=== PATIENT | female | born 1960 | race Caucasian/White ===

== ENCOUNTER 2018-01-11 12:21 | Emergency (ER) | payer BC, OTHER ==
[~2018-01-11 12:21] MED LIST: ACET-2043 PO; ACYC-50 PO; AMOX-362 PO; ASPI-715 PO; ASPI-757 PO; ASPI-879 PO; CANA300T PO; CETI10CA PO; CHOL200025 PO; CHOL200038 PO; CYAN1TAB68 PO; CYAN500T38 PO; DOCU-442 PO; DUL30 PO; FENO145T36 PO; FEXO1TAB PO; GABA-503 PO; GABA-547 PO; GABA-549 PO; GLUC-198 PO; GLY25 PO; GLY5 PO; GLYB2.5T67 PO; HYDR-2966 PO; HYDR-385 PO; HYDR-4228 PO; HYDR-4309 PO; IBU200 PO; IBUP600T22 PO; KET10 PO; LIDO700A29 TD; LISI5TAB25 PO; LOR10 PO; MECL25TA9 PO; MET500 PO; METH1ADH TP; MINE1TAB6 PO; MULT-1335 PO; MULT1CAP59 PO; NOR25 PO; ONDA4TAB PO; OXYC-865 PO; PIOG15TA2 PO; POLY17PO2 PO; POTA10CA40 PO; VENL37.514 FT; VENL37.594 PO; VITA1CAP46 PO; [UNRECOGNIZED DRUG - CODE] PO; [UNRECOGNIZED DRUG - CODE] PO; [UNRECOGNIZED DRUG - CODE] PO; [UNRECOGNIZED DRUG - CODE] PO; [UNRECOGNIZED DRUG - OTHER] OU
--- NOTE | 2018-01-11 12:33 | ER Report ---
History and Physical Time Seen By : 12:33 HPI/ROS Patient is a 57 y.o. female presenting to the ER for acute knee pain. She was at home and walking around a chair when she felt a pop and severe pain. She was unable to place weight on it at that point. She denies a change in sensation, pain without weight bearing, and decrease in ROM. She has a history of left knee contusion 3 years ago but no other injuries or surgeries on the joint. No history of OA. Allergies: Coded Allergies: haloperidol (Verified Allergy, Severe, 18 OF 21 REACTIONS, 09/06/17) Antihistamines - Alkylamine (Verified Allergy, Unknown, 09/06/17) ALL ANTIHISTAMINES Antihistamines - Ethanolamine (Verified Allergy, Unknown, 09/06/17) Antihistamines - Ethylenediamine (Verified Allergy, Unknown, 09/06/17) Antihistamines - Piperazine (Verified Allergy, Unknown, 09/06/17) Antihistamines - Piperidine (Verified Allergy, Unknown, 09/06/17) Uncoded Allergies: DECONGESTANTS (Allergy, Unknown, 07/19/16) Home Meds Active Scripts Oxycodone Hcl/Acetaminophen (OXYCODON-ACETAMINOPHEN 2.5-325) 1 Each Tablet, 1 EACH PO Q6-8H for PAIN, #10 TAB 0 Refills Prov:ELDON STORY MD 04/13/17 Polyethylene Glycol 3350 (GAVILAX) 17 Gm Powd.pack, 17 GM PO QDAY, #4 PACK 0 Refills Prov:ELDON STORY MD 04/13/17 Reported Medications Aspirin (ASPIRIN) 325 Mg Tablet, 1200 MG PO QID Y for PAIN, TAB 03/08/17 Gabapentin (GABAPENTIN) 300 Mg Capsule, 600 MG PO QID, CAPSULE 03/08/17 Acyclovir (ACYCLOVIR) 400 Mg Tablet, 800 MG PO QID, TAB 03/08/17 Canagliflozin (INVOKANA) 300 Mg Tablet, 300 MG PO DAILY 03/08/17 Fenofibrate Nanocrystallized (FENOFIBRATE) 145 Mg Tablet, 145 MG PO QDAY 07/21/16 Potassium Chloride (POTASSIUM CHLORIDE) 10 Meq Capsule.er, 10 MEQ PO QDAY TAKE WITH FOOD 06/05/15 Lisinopril (LISINOPRIL) 5 Mg Tablet, 10 MG PO QAM 11/05/14 Glyburide (DIABETA) 5 Mg Tablet, 10 MG PO BID 10/28/13 Multivitamins W-Minerals (Multiple Vitamin) 1 Tab Tablet, 1 TAB PO DAILY 01/25/13 Past Medical/Surgical History Left knee contusion in 2014 Reviewed Nurses Notes: Yes Hx Smoking: No Smoking Status: Never Smoker Exposure to Second Hand Smoke?: No Hx Substance Use Disorder: No Hx Alcohol Use: Yes Constitutional Vital Sign - Last 24 Hours 01/11/18 01/11/18 01/11/18 01/11/18 12:30 12:30 12:51 13:21 Temp 98.5 Pulse 86 77 74 Resp 20 B/P (MAP) 125/83 (97) 125/83 Pulse Ox 90 91 90 O2 Delivery Room Air 01/11/18 01/11/18 01/11/18 01/11/18 13:51 13:56 14:11 14:12 Pulse 75 72 75 B/P (MAP) 110/68 (82) Pulse Ox 89 91 91 Physical Exam General: Calm and under no acute distress Resp: Clear and equal bilaterally Cardiovascular: RRR, no murmurs, gallops, or rubs. Distal pulse equal bilaterally. MSK: Full passive and active ROM in left knee, neg. anterior and posterior drawer sign. Tenderness with knee verus motion. Strength and sensation 5/5. Psych: Appropriate mood and affect Neuro: A&O x 3 Medical Decision Making EKG/Imaging Imaging Study: KNEE 4 VIEW LEFT Indication: Pain Comparison study: June 05, 2015 Findings: AP lateral oblique and sunrise views of the left knee demonstrates mild lateral subluxation of the patellofemoral joint. There is no significant joint effusion. There is no evidence of acute fracture or dislocation. There is no evidence of lytic or blastic bony lesions. There is no significant degenerative change noted. IMPRESSION: Mild lateral subluxation of the patellofemoral joint, otherwise unremarkable. Report Dictated By: Jerardo Medellin at 01/11/2018 1:41 PM Report E-Signed By: Jerardo Medellin at 01/11/2018 1:43 PM ED Course/Re-evaluation ED Course Patient presented to ER and was admitted with left knee pain. She was examined and provided with Toradol 60 mg IM. Left knee xray ordered and showed lateral patellar subluxation. She was placed in a patellar stabilization brace and provided with crutches. She was discharged with assistance of her and recommended f/u with PCP for PT referral. Decision to Disposition Date: Jan 11, 2018 Decision to Disposition Time: 13:45 Depart Departure Latest Vital Signs Vital Signs Date Time Temp Pulse Resp B/P (MAP) Pulse Ox O2 Delivery O2 Flow Rate FiO2 01/11/18 14:12 110/68 (82) 01/11/18 14:11 75 91 01/11/18 12:30 98.5 20 Room Air Impression: Primary Impression: Sprain of left knee Condition: Improved Disposition: HOME OR SELF-CARE Patient Instructions: Knee Sprain (ED) Additional Instructions: Your have sprained your left knee. We placed you in a patella stabilizing brace and provided with crutches for ambulation. Weight baring as tolerated. Ibuprofen 800 mg every 6-8 hours as needed for pain. Ice application to knee 20 minutes 3-4 times daily. Follow-up with your primary care provider for possible physical therapy referral. Problem Qualifiers Primary Impression: Sprain of left knee Encounter type: initial encounter Involved ligament of knee: unspecified ligament Qualified Codes: S83.92XA - Sprain of unspecified site of left knee, initial encounter JESICA RILEY Jan 11, 2018 12:33
[2018-01-11] MEDS ORDERED: KETOROLAC 60 MG/2 ML VIAL IM ONE (12:50)
--- NOTE | 2018-01-11 13:47 | RADIOLOGY IMAGING REPORT ---
FACILITY: [facility] PATIENT NAME: Gayle Abreu : 1960 MR: [id number] V: [id number] EXAM DATE: ORDERING PHYSICIAN: JESICA RILEY TECHNOLOGIST: Location: [facility] - [place] Patient: Gayle Abreu : 1960 Visit/Account:[id number] Date of Sevice: 01/11/2018 Study: KNEE 4 VIEW LEFT Indication: Pain Comparison study: June 05, 2015 Findings: AP lateral oblique and sunrise views of the left knee demonstrates mild lateral subluxation of the patellofemoral joint. There is no significant joint effusion. There is no evidence of acute fracture or dislocation. There is no evidence of lytic or blastic bony lesions. There is no signif icant degenerative change noted. IMPRESSION: Mild lateral subluxation of the patellofemoral joint, otherwise unremarkable. Report Dictated By: Jerardo Medellin at 01/11/2018 1:41 PM Report E-Signed By: Jerardo Medellin at 01/11/2018 1:43 PM [id number]
[2018-01-11 14:12] VITALS: BP 110/68
== END 2018-01-11 14:43 | disposition home or self-care (01) ==
LOC: ER 12:26
DX: S83.92XA Sprain of unspecified site of left knee, initial encounter (principal)
CPT/HCPCS: 73564; 96372; 99283; J1885; L1830

== ENCOUNTER 2018-02-05 01:24 | Inpatient (IN) | payer BC ==
[~2018-02-05] VITALS: Ht 152.4 cm; Wt 113.4 kg
[~2018-02-05 01:24] MED LIST changes: -PIOG15TA2 PO; +PIOG15TA67 PO
--- NOTE | 2018-02-05 01:30 | ER Report ---
History and Physical Time Seen By MD: 01:28 HPI/ROS CHIEF COMPLAINT: Back pain HISTORY OF PRESENT ILLNESS: 57-year-old female presents ambulatory to the ER complaining of severe low back pain. Patient states she has a history of spina bifida with her twin sister. 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 That confirmed on old x-rays reports. Patient states her back without yesterday. She states he has a disc that pops out. Patient notes no incontinence. Patient denies radiation of the symptoms to her lower extremities. Patient notes aggravation with movement. Patient denies dysuria, frequency or hematuria. Patient's had no fever. Patient states her back goes out like this infrequently. The last time she waited too long and she states she was paralyzed in both of her lower extremities. REVIEW OF SYSTEMS: Respiratory: No cough, no dyspnea. Cardiovascular: No chest pain, no palpitations. Gastrointestinal: No vomiting, no abdominal pain. Musculoskeletal: As above Allergies: Coded Allergies: haloperidol (Verified Allergy, Severe, 18 OF 21 REACTIONS, 02/05/18) ketorolac (Verified Allergy, Intermediate, rash/itching/psychosis, 02/05/18 ) Antihistamines - Alkylamine (Verified Allergy, Unknown, 02/05/18) ALL ANTIHISTAMINES Antihistamines - Ethanolamine (Verified Allergy, Unknown, 02/05/18) Antihistamines - Ethylenediamine (Verified Allergy, Unknown, 02/05/18) Antihistamines - Piperazine (Verified Allergy, Unknown, 02/05/18) Antihistamines - Piperidine (Verified Allergy, Unknown, 02/05/18) Uncoded Allergies: DECONGESTANTS (Allergy, Unknown, 07/19/16) Home Meds Active Scripts Hydrocodone Bit/Acetaminophen (NORCO 5-325 TABLET) 1 Each Tablet, 1 EACH PO Q4H Y for PAIN, #10 TAB Prov:JAMIA SHAY DO 02/05/18 Methocarbamol (ROBAXIN-750) 750 Mg Tablet, 1 TAB PO TID Y for muscle spasm relief, #12 Prov:JAMIA SHAY DO 02/05/18 Reported Medications [statin] No Conflict Check, PO QDAY 02/05/18 Ubidecarenone (Coenzyme Q-10) 30 Mg Capsule, PO QDAY 02/05/18 Escitalopram Oxalate (LEXAPRO) 20 Mg Tablet, PO QDAY, TAB 02/05/18 Aspirin (ASPIRIN) 325 Mg Tablet, 1200 MG PO QID Y for PAIN, TAB 03/08/17 Gabapentin (GABAPENTIN) 300 Mg Capsule, 600 MG PO QID, CAPSULE 03/08/17 Acyclovir (ACYCLOVIR) 400 Mg Tablet, 800 MG PO QID Y for INFECTION, TAB 03/08/17 Fenofibrate Nanocrystallized (FENOFIBRATE) 145 Mg Tablet, 145 MG PO QDAY 07/21/16 Potassium Chloride (POTASSIUM CHLORIDE) 10 Meq Capsule.er, 10 MEQ PO QDAY TAKE WITH FOOD 06/05/15 Lisinopril (LISINOPRIL) 5 Mg Tablet, 10 MG PO QAM 11/05/14 Glyburide (DIABETA) 5 Mg Tablet, 10 MG PO BID 10/28/13 Multivitamins W-Minerals (Multiple Vitamin) 1 Tab Tablet, 1 TAB PO DAILY 01/25/13 Discontinued Reported Medications Canagliflozin (INVOKANA) 300 Mg Tablet, 300 MG PO DAILY 03/08/17 Discontinued Scripts Oxycodone Hcl/Acetaminophen (OXYCODON-ACETAMINOPHEN 2.5-325) 1 Each Tablet, 1 EACH PO Q6-8H for PAIN, #10 TAB 0 Refills Prov:ELDON STORY MD 04/13/17 Polyethylene Glycol 3350 (GAVILAX) 17 Gm Powd.pack, 17 GM PO QDAY, #4 PACK 0 Refills Prov:ELDON STORY MD 04/13/17 Past Medical/Surgical History Type II diabetes, hypertension,? Diabetic neuropathy Reviewed Nurses Notes: Yes Old Medical Records Reviewed: Yes Hx Smoking: No Smoking Status: Never Smoker Exposure to Second Hand Smoke?: No Hx Substance Use Disorder: No Hx Alcohol Use: Yes Constitutional Vital Sign - Last 24 Hours 02/05/18 02/05/18 02/05/18 02/05/18 01:28 01:39 01:54 02:09 Temp 98.5 Pulse 98 99 90 80 Resp 24 B/P (MAP) 123/95 Pulse Ox 94 87 89 92 O2 Delivery Room Air 02/05/18 02/05/18 02/05/18 02/05/18 02:14 02:29 02:30 02:35 Pulse 85 89 90 86 Pulse Ox 90 92 93 02/05/18 02/05/18 02/05/18/13/18 02:50 03:05 03:10 05:15 Pulse 87 91 87 93 Pulse Ox 92 92 91 88 02/05/18 02/05/18 02/05/18 05:30 05:35 05:50 Pulse 94 92 88 Pulse Ox 89 90 91 Physical Exam General Appearance: The patient is alert, has no immediate need for airway protection and no current signs of toxicity. Eyes: Pupils equal and round no injection. Respiratory: Chest is non tender, lungs are clear to auscultation. Cardiac: regular rate and rhythm Gastrointestinal: Abdomen is soft and non tender, no masses, bowel sounds normal. Musculoskeletal: Neck: Neck is supple and non tender. No lymphadenopathy. Back: Palpation of the midline of the lumbar spine reveals no tenderness. There is no tenderness in the lumbar paraspinous muscles. There is tenderness of the left SI joint. Extremities have full range of motion and are non tender. Skin: No rashes or lesions. DIFFERENTIAL DIAGNOSIS: After history and physical exam differential diagnosis was considered for back pain including but not limited to muscular pain, herniated disc, spine fracture, intra-abdominal causes and urinary tract infection. Medical Decision Making EKG/Imaging Imaging Results: CT scan of the lumbar spine without contrast was obtained. The results of the study are L-SPINE W/O CONTRAST HISTORY: Severe low back pain. COMPARISON: Lumbar spine x-rays 01/04/2014. CT abdomen and pelvis 10/28/2013. TECHNIQUE: Axial images were obtained through the lumbar spine. Coronal and sagittal reformatted images were obtained from the axial source data. One of the following dose optimization techniques was utilized in the performance of this exam: Automated exposure control; adjustment of the mA and/ or kV according to the patient's size; or use of an iterative reconstruction technique. Specific details can be referenced in the facility's radiology CT exam operational policy. CONTRAST: None. FINDINGS: Musculoskeletal/vertebra: No acute osseous abnormality. There is 4 mm anterolisthesis of L3 on L4, unchanged. There are severe bilateral degenerative facet disease at L3-4 and mild degenerative facet disease at other levels of the lumbar spine. T12-L1: Normal. L1-2: There is mild degenerative facet disease. There is a minimal circumferential disc bulge. There is no central canal or foraminal stenosis. L2-3: There is a circumferential disc bulge. There is mild degenerative facet disease. There is mild central canal stenosis. There is mild left foraminal stenosis. L3-4: There are severe degenerative facet disease, facet and ligamentum flavum hypertrophy, and a circumferential disc bulge. Together, degenerative changes cause severe central canal stenosis (image 118 series 2). There is moderate right foraminal stenosis. There is mild left foraminal stenosis. L4-5: There is moderate to severe loss of disc height, greatest posteriorly. There is circumferential disc osteophyte, and there are mild to moderate degenerative facet disease and facet hypertrophy. There is minimal central canal stenosis. There is mild to moderate bilateral foraminal stenosis. L5-S1: There is no central canal or foraminal stenosis. Visualized retroperitoneal / abdominal structures: There is mild atherosclerosis of the aorta. No aneurysm. There is a retroaortic left renal vein. IMPRESSION: 1. Degenerative changes cause severe central canal stenosis at L3-4, mild central canal stenosis at L2-3, and minimal central canal stenosis at L4-5. 2. There is moderate right foraminal stenosis at L3-4 and mild to moderate bilateral foraminal stenosis at L4-5. 3. No acute osseous abnormality of the lumbar spine. The study was read by the radiologist. I viewed the images myself on the PACS system. ED Course/Re-evaluation Clinical Indication for ER IV: IV Access ED Course Patient was admitted to an examination room. H&P was done. The differential diagnoses was considered. On clinical examination. Patient has nonfocal lower externally examination. However, she is complaining of pain with standing and unable ambulate very far. Patient was treated with IV medications site, Medrol , Valium, Dilaudid and Toradol. She was unable ambulate. He CT scan of the lumbar spine was ordered. She has severe spinal stenosis noted on CT scan. Her case was discussed with the hospitalist for admission of pain control 02/05/2018 5:50:46 am case discussed with Dr. Ellsworth hospitalist on-call, who accepted the patient for pain management. Decision to Disposition Date: February 05, 2018 Decision to Disposition Time: 05:43 Depart Departure Latest Vital Signs Vital Signs Date Time Temp Pulse Resp B/P (MAP) Pulse Ox O2 Delivery O2 Flow Rate FiO2 02/05/18 05:50 88 91 02/05/18 01:28 98.5 24 123/95 Room Air Impression: Primary Impression: Spinal stenosis of lumbar region Additional Impressions: Severe low back pain Left lumbar radiculopathy Condition: Improved Disposition: Admitted from ER New Scripts Hydrocodone Bit/Acetaminophen (NORCO 5-325 TABLET) 1 Each Tablet 1 EACH PO Q4H Y for PAIN, #10 TAB Prov: JAMIA HSAY DO 02/05/18 Methocarbamol (ROBAXIN-750) 750 Mg Tablet 1 TAB PO TID Y for muscle spasm relief, #12 Prov: JAMIA SHAY DO 02/05/18 Patient Instructions: Acute Low Back Pain (ED) Additional Instructions: Apply heating pad to the affected area Follow-up with primary care if unimproved in 3-5 days Problem Qualifiers Primary Impression: Spinal stenosis of lumbar region Neurogenic claudication status: with neurogenic claudication Qualified Codes : M48.062 - Spinal stenosis, lumbar region with neurogenic claudication JAMIA SHAY DO February 05, 2018 01:30
[2018-02-05] MEDS ORDERED: UBID30CA PO (01:38)
[2018-02-05] MEDS ORDERED: ESCI20TA38 PO (01:38)
[2018-02-05] MEDS ORDERED: ONDANSETRON 4 MG/2 ML VIAL IVP ONE (01:40)
[2018-02-05] MEDS ORDERED: METHOCARBAMOL 500 MG TAB PO ONE (01:40)
[2018-02-05] MEDS ORDERED: KETOROLAC 30 MG/ML VIAL IVP ONE (01:40)
[2018-02-05] MEDS ORDERED: HYDROmorphone* 1 MG/ML 1 MG/ML ML IVP ONE ×2 (01:40→03:00)
[2018-02-05] MEDS ORDERED: statin PO (01:57)
[2018-02-05] MEDS ORDERED: METH-543 PO (02:22)
[2018-02-05] MEDS ORDERED: HYDR-4309 PO (02:22)
[2018-02-05] MEDS ORDERED: ACET/HYDROC 5/325MG TH ER ONLY 2 TAB/BOTTLE PO ONE (02:25)
[2018-02-05] MEDS ORDERED: methylPREDNIS SUCC 125 MG/2ML IVP ONE (03:00)
[2018-02-05] MEDS ORDERED: LORazepam 2 MG/ML VIAL IVP ONE (03:50)
--- NOTE | 2018-02-05 05:11 | RADIOLOGY IMAGING REPORT ---
[place] [facility] [place] Gayle Abreu : 1960 MR: [id number] V: [id number] EXAM DATE: ORDERING PHYSICIAN: JAMIA SHAY TECHNOLOGIST: Location: [facility] - [place] Patient: Gayle Abreu : 1960 Visit/Account:[id number] Date of Sevice: 02/05/2018 L-SPINE W/O CONTRAST HISTORY: Severe low back pain. COMPARISON: Lumbar spine x-rays 01/04/2014. CT abdomen and pelvis 10/28/2013. TECHNIQUE: Axial images were obtained through the lumbar spine. Coronal and sagittal reformatted imag es were obtained from the axial source data. One of the following dose optimization techniques was utilized in the performance of this exam: Autom ated exposure control; adjustment of the mA and/or kV according to the patient's size; or use of an i terative reconstruction technique. Specific details can be referenced in the facility's radiology CT exam operational policy. CONTRAST: None. FINDINGS: Musculoskeletal/vertebra: No acute osseous abnormality. There is 4 mm anterolisthesis of L3 on L4, un changed. There are severe bilateral degenerative facet disease at L3-4 and mild degenerative facet di sease at other levels of the lumbar spine. T12-L1: Normal. L1-2: There is mild degenerative facet disease. There is a minimal circumferential disc bulge. There is no central canal or foraminal stenosis. L2-3: There is a circumferential disc bulge. There is mild degenerative facet disease. There is mild central canal stenosis. There is mild left foraminal stenosis. L3-4: There are severe degenerative facet disease, facet and ligamentum flavum hypertrophy, and a cir cumferential disc bulge. Together, degenerative changes cause severe central canal stenosis (image 11 8 series 2). There is moderate right foraminal stenosis. There is mild left foraminal stenosis. L4-5: There is moderate to severe loss of disc height, greatest posteriorly. There is circumferential disc osteophyte, and there are mild to moderate degenerative facet disease and facet hypertrophy. Th ere is minimal central canal stenosis. There is mild to moderate bilateral foraminal stenosis. L5-S1: There is no central canal or foraminal stenosis. Visualized retroperitoneal / abdominal structures: There is mild atherosclerosis of the aorta. No ane urysm. There is a retroaortic left renal vein. IMPRESSION: 1. Degenerative changes cause severe central canal stenosis at L3-4, mild central canal stenosis at L 2-3, and minimal central canal stenosis at L4-5. 2. There is moderate right foraminal stenosis at L3-4 and mild to moderate bilateral foraminal stenos is at L4-5. 3. No acute osseous abnormality of the lumbar spine. Report Dictated By: Heike Koo at 02/05/2018 4:57 AM Report E-Signed By: Heike Koo at 02/05/2018 5:07 AM WSN:[id number]
[2018-02-05 06:41] VITALS: BP 118/73
--- NOTE | 2018-02-05 07:48 | History & Physical ---
History of Present Illness Chief Complaint Severe low back pain History of Present Illness Mrs. Abreu is a 57-year-old female with PMH of HTN on Lisinopril 5, DM-II on Diabeta 5, Depression on Lexapro, Dyslipidemia on Fenofibrate 145, Low back Pain on Neurontin 600, presented walking to the ER complaining of severe low back pain. Patient stated she has a history of spina bifida with her twin sister. 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 She denied stool and urine incontinence, radiation of the symptoms to her lower extremities, pain gets aggravated with movement. She also denied fever, dysuria, frequency or hematuria. 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 During the ER-management, despite using multiple pain medications she could not get up and walk. I discussed the case with the ER-MD and admitted the patient for further evaluation and management for her pain and spinal stenosis. At present patient is pain free and without any complaint. History Home Meds Active Scripts Hydrocodone Bit/Acetaminophen (NORCO 5-325 TABLET) 1 Each Tablet, 1 EACH PO Q4H Y for PAIN, #10 TAB Prov:JAMIA SHAY DO 02/05/18 Methocarbamol (ROBAXIN-750) 750 Mg Tablet, 1 TAB PO TID Y for muscle spasm relief, #12 Prov:JAMIA SHAY DO 02/05/18 Reported Medications [statin] No Conflict Check, PO QDAY 02/05/18 Ubidecarenone (Coenzyme Q-10) 30 Mg Capsule, PO QDAY 02/05/18 Escitalopram Oxalate (LEXAPRO) 20 Mg Tablet, PO QDAY, TAB 02/05/18 Aspirin (ASPIRIN) 325 Mg Tablet, 1200 MG PO QID Y for PAIN, TAB 03/08/17 Gabapentin (GABAPENTIN) 300 Mg Capsule, 600 MG PO QID, CAPSULE 03/08/17 Acyclovir (ACYCLOVIR) 400 Mg Tablet, 800 MG PO QID Y for INFECTION, TAB 03/08/17 Fenofibrate Nanocrystallized (FENOFIBRATE) 145 Mg Tablet, 145 MG PO QDAY 07/21/16 Potassium Chloride (POTASSIUM CHLORIDE) 10 Meq Capsule.er, 10 MEQ PO QDAY TAKE WITH FOOD 06/05/15 Lisinopril (LISINOPRIL) 5 Mg Tablet, 10 MG PO QAM 11/05/14 Glyburide (DIABETA) 5 Mg Tablet, 10 MG PO BID 10/28/13 Multivitamins W-Minerals (Multiple Vitamin) 1 Tab Tablet, 1 TAB PO DAILY 01/25/13 Discontinued Reported Medications Canagliflozin (INVOKANA) 300 Mg Tablet, 300 MG PO DAILY 03/08/17 Discontinued Scripts Oxycodone Hcl/Acetaminophen (OXYCODON-ACETAMINOPHEN 2.5-325) 1 Each Tablet, 1 EACH PO Q6-8H for PAIN, #10 TAB 0 Refills Prov:ELDON STORY MD 04/13/17 Polyethylene Glycol 3350 (GAVILAX) 17 Gm Powd.pack, 17 GM PO QDAY, #4 PACK 0 Refills Prov:ELDON STORY MD 04/13/17 Allergies: Coded Allergies: haloperidol (Verified Allergy, Severe, 18 OF 21 REACTIONS, 02/05/18) ketorolac (Verified Allergy, Intermediate, rash/itching/psychosis, 02/05/18 ) Antihistamines - Alkylamine (Verified Allergy, Unknown, 02/05/18) ALL ANTIHISTAMINES Antihistamines - Ethanolamine (Verified Allergy, Unknown, 02/05/18) Antihistamines - Ethylenediamine (Verified Allergy, Unknown, 02/05/18) Antihistamines - Piperazine (Verified Allergy, Unknown, 02/05/18) Antihistamines - Piperidine (Verified Allergy, Unknown, 02/05/18) Uncoded Allergies: DECONGESTANTS (Allergy, Unknown, 07/19/16) Patient History: Diabetes mellitus (DM) MOTHER FH: CAD (coronary artery disease) grandparent FH: HTN (hypertension) grandparent FH: alcohol abuse FATHER grandparent grandparent FH: cancer MOTHER BROTHER OR SISTER FH: spina bifida BROTHER OR SISTER FH: stroke MOTHER Psychiatric condition MOTHER Hx Smoking: No Smoking Status: Never Smoker Exposure to Second Hand Smoke?: No Caffeine/Cups Per Day: NONE Hx Alcohol Use: Yes Hx Substance Use Disorder: No Social Drug Use: Never Review of Systems Constitutional: No Fever, No Weight Loss, No Weight Gain, No Chills Neurological: No Confusion, No Weakness, No Dizziness Cardiovascular: No Chest Pain, No Palpitations Respiratory: Other, No Shortness of Breath, No Cough Gastrointestinal: No Nausea, No Vomiting, No Diarrhea, No Constipation, No Abdominal Pain Genitourinary: No Dysuria, No Hematuria, No Urinary Incontinence Musculoskeletal: Pain, Impaired Mobility, No Sprain, No Strain Psychiatric: Depression, No Anxiety Exam Vital Signs Vital Signs Date Time Temp Pulse Resp B/P (MAP) Pulse Ox O2 Delivery O2 Flow Rate FiO2 02/05/18 12:32 98.6 111 16 121/69 (86) 93 Nasal Cannula 3.0 General Appearance: Alert, Awake, No Acute Distress, Afebrile Neuro: No Gross deficits Eyes: PERRLA ENT: Normal Neck: No Masses Cardiovascular: Normal Rhythm & Peripheral Pulses Respiratory: No Respiratory Distress GI: Abd Soft and Non-Tender Extremities: Soft and Non Tender, Warm, Edema Integumentary: Skin Intact without Lesion / Mass Psych: Alert & Oriented X3, Appropriate Mood & Affect Medical Decision Making Pre-Admit Course ED Medications reviewed Medical Record Review: Yes Assessment and Plan Problems: (1) Spinal stenosis of lumbar region Status: Acute Assessment & Plan: I will admit her to the medical floor for further evaluation and management I will start Ibuprofen 600mg po q 8h I will start Norflex 100mg po bid I will start Dilaudid for breakthrough pains prn I will also keep [place] 5/325mg po q 4h prn I will consult PT I will get ortho consult with Dr. Blackman in am I will also keep her on her Neurontin 600mg po qid for her nerve pain I will use smallest dose of Prednisone 2.5mg for her PMR I will use Protonix 40mg po qdaily (2) DM (diabetes mellitus) Status: Chronic Assessment & Plan: I will continue her Diabeta 10mg po bid I will place her on Acchuchecks q AC and HS I will start sliding scale level II and cover with regular insulin I will decrease her Lisinopril to 5mg po qd (3) Dyslipidemia Status: Chronic Assessment & Plan: I will start her Statin Lipitor 40mg po qd and CoQ 10 also I will add Niacin 250mg po qd (4) HTN (hypertension) Status: Chronic Assessment & Plan: I will decrease her Lisinopril to 5mg po qd I will start Atenolol 12.5mg po qd for her HR to be 60-70 I will keep her on ASA 81mg po qd for prophylaxis for her high risk of CAD.CVA etc Time Spent on Plan of Care: > 30 min Copies to: STEFANO WAGNER Venous Thromboembolism VTE Risk Physician Assess for VTE Risk: Yes Patient's VTE Risk: Low VTE Diagnostic Test 2 Days Prior to Admit: No Antithrombotics Is Pt On Any Antithrombotics?: No Exam Sepsis Risk: No Definite Risk Problem Qualifiers (1) Spinal stenosis of lumbar region: Neurogenic claudication status: with neurogenic claudication Qualified Codes: M48.062 - Spinal stenosis, lumbar region with neurogenic claudication (2) DM (diabetes mellitus): Diabetes mellitus type: type 2 AV CHERRY MD February 05, 2018 07:48
[2018-02-05] MEDS ORDERED: ACETAMINOPHEN 325 MG TAB PO PRN (10:15)
[2018-02-05] MEDS ORDERED: ONDANSETRON 4 MG/2 ML VIAL IVP PRN (10:15)
[2018-02-05] MEDS ORDERED: HYDROmorphone HCL 2 MG/ML SDV IVP PRN (10:45)
[2018-02-05] MEDS ORDERED: IBUPROFEN 600 MG TAB PO PRN ×3 (10:45→11:15)
[2018-02-05] MEDS ORDERED: APAP/HYDROCODONE 325/5 TAB PO PRN (10:50)
[2018-02-05 11:27] VITALS: Ht 152.4 cm; Wt 113.4 kg
[2018-02-05 12:32] VITALS: BP 121/69
[2018-02-05] MEDS: GABAPENTIN 300 MG CAP PO SCH ×3 (12:32→21:20)
[2018-02-05 15:14] VITALS: BP 112/65
[2018-02-05] MEDS: IBUPROFEN 600 MG TAB PO SCH (16:42)
[2018-02-05] MEDS ORDERED: glyBURIDE 5 MG TAB PO SCH (17:00)
[2018-02-05] MEDS: INSULIN HUMAN REGULAR SLIDING SCALE SC PRN ×2 (17:23→22:12)
[2018-02-05 18:53] VITALS: BP_SYST 122; BP_SYST 95; BP_DIAS 54; BP_DIAS 58
[2018-02-05] MEDS: ATORVASTATIN 40 MG TAB PO SCH (21:20)
[2018-02-05] MEDS: ORPHENADRINE CITR 100 MG TABSR PO SCH (21:20)
[2018-02-05] MEDS: ESCITALOPRAM OXALATE 10 MG TAB PO SCH (21:21)
[2018-02-05] MEDS: NIACINAMIDE 500 MG TAB PO SCH (21:22)
[2018-02-05] MEDS: glyBURIDE 5 MG TAB PO SCH (22:13)
[2018-02-06] MEDS: IBUPROFEN 600 MG TAB PO SCH ×3 (00:26→16:53)
[2018-02-06 05:15] VITALS: BP 106/72
[2018-02-06 06:08] LABS: PLATELET COUNT, AUTOMATED 197 K/uL (150-450)
[2018-02-06 07:59] VITALS: BP 107/83
[2018-02-06] MEDS: INSULIN HUM REG 100 UN/ML 3 ML VIAL SC PRN ×3 (08:17→16:53)
[2018-02-06] MEDS: ASPIRIN 81 MG ENTERIC COATED PO SCH (08:18)
[2018-02-06] MEDS: GABAPENTIN 300 MG CAP PO SCH ×4 (08:18→21:13)
[2018-02-06] MEDS: LISINOPRIL 5 MG TAB PO SCH (08:18)
[2018-02-06] MEDS: ATENOLOL 25 MG TAB PO SCH (08:20)
[2018-02-06] MEDS: glyBURIDE 5 MG TAB PO SCH ×2 (08:20→16:54)
[2018-02-06] MEDS: ORPHENADRINE CITR 100 MG TABSR PO SCH ×2 (08:21→21:12)
[2018-02-06] MEDS: PANTOPRAZOLE SOD 40 MG TABEC PO SCH (08:21)
[2018-02-06] MEDS: predniSONE 5 MG TAB PO SCH (08:21)
--- NOTE | 2018-02-06 09:35 | RADIOLOGY IMAGING REPORT ---
FACILITY: [facility] [place] PATIENT NAME: Gayle Abreu : 1960 MR: [id number] V: [id number] EXAM DATE: ORDERING PHYSICIAN: LAWANDA DUNLAP TECHNOLOGIST: Location: [facility] [place] Patient: Gayle Abreu : 1960 Visit/Account:[id number] Date of Sevice: 02/06/2018 Study: CERVICAL SPINE MIN 4 VIEW Indication: Left upper extremity paresthesias Comparison study: None available Findings: Open-mouth, AP, lateral, and bilateral oblique views of the cervical spine demonstrate that the atlantoaxial articulation is unremarkable. There is no evidence of acute bony abnormality. The re is no evidence of subluxation. There is mild degenerative disease present. The oblique views demonstrate no evidence of significant narrowing of the bony neural foramina. The prevertebral soft tissues are unremarkable. There is straightening of the normal cervical lordosis identified. IMPRESSION: Straightening of the normal cervical lordosis, otherwise unremarkable exam. Report Dictated By: Jerardo Medellin at 02/06/2018 9:30 AM Report E-Signed By: Jerardo Medellin at 02/06/2018 9:31 AM WSN:[id number]
--- NOTE | 2018-02-06 10:48 | Hospitalist Progress Note ---
Subjective Progress Notes Subjective She reports her pain and mobility are improved. She states she has intermittent radicular symptoms in her lower extremities usually involving her left leg posterior/lateral. She also reports neck pain and occasional symptoms in left upper extremity as well. Physical Exam Vital Signs Date Time Temp Pulse Resp B/P (MAP) Pulse Ox O2 Delivery O2 Flow Rate FiO2 02/06/18 07:59 97.6 75 16 107/83 (91) 95 Nasal Cannula 1.0 Intake and Output 02/07/18 06:59 Intake Total 800 ml Balance 800 ml Intake Oral 800 ml General Appearance: Alert, Awake Neuro: Other (Motor exam is grossly normal - no focal deficits. DTRs 2/4 bilaterally in patellar and 1/4 bilaterally in Achilles.) Cardiovascular: Regular Rate and Rhythm Respiratory: Clear to Auscultation GI: Soft and Non-Tender Extremities: Warm, Perfused, Other (negative staright leg raise bilaterally) Psych: Alert & Oriented X3 Result Diagram: 02/06/18 0545 02/06/18 0545 Assessment and Plan Problems: (1) Spinal stenosis of lumbar region Status: Acute Assessment & Plan: I will admit her to the medical floor for further evaluation and management I will start Ibuprofen 600mg po q 8h I will start Norflex 100mg po bid I will start Dilaudid for breakthrough pains prn I will also keep [place] 5/325mg po q 4h prn I will consult PT I will get ortho consult with Dr. Blackman in am I will also keep her on her Neurontin 600mg po qid for her nerve pain I will use smallest dose of Prednisone 2.5mg for her PMR I will use Protonix 40mg po qdaily 02/06: She appears to be symptomatically significantly improved. Will have PT evaluate/ treat. Will continue with symptom control. Will see if Dr. Blackman can review her radiology. Will check c-spine films as it appears she has some cervical symptoms as well. (2) DM (diabetes mellitus) Status: Chronic Assessment & Plan: I will continue her Diabeta 10mg po bid I will place her on Acchuchecks q AC and HS I will start sliding scale level II and cover with regular insulin I will decrease her Lisinopril to 5mg po qd 02/06: Glucoses did spike after the steroids she received yesterday. Improved this AM. No changes at this time. (3) Dyslipidemia Status: Chronic Assessment & Plan: I will start her Statin Lipitor 40mg po qd and CoQ 10 also I will add Niacin 250mg po qd 02/06: No changes. (4) HTN (hypertension) Status: Chronic Assessment & Plan: I will decrease her Lisinopril to 5mg po qd I will start Atenolol 12.5mg po qd for her HR to be 60-70 I will keep her on ASA 81mg po qd for prophylaxis for her high risk of CAD.CVA etc 02/06: BPs are in normal/low normal range. Watch closely. Exam Sepsis Risk: No Definite Risk Problem Qualifiers (1) Spinal stenosis of lumbar region: Neurogenic claudication status: with neurogenic claudication Qualified Codes: M48.062 - Spinal stenosis, lumbar region with neurogenic claudication (2) DM (diabetes mellitus): Diabetes mellitus type: type 2 LAWANDA DUNLAP MD February 06, 2018 10:48
[2018-02-06 11:15] VITALS: BP 105/66
--- NOTE | 2018-02-06 12:43 | Medical Nutrition Therapy ---
Nutrition Anthropometrics Height (Inches): 60.00 Height (Calculated Centimeters: 152.234570 Weight (Pounds): 250 Weight (Calculated Kilograms): 113.398 BMI Calculated: 48.82 Hx Weight Gain: Yes (up 17# since June 2016) hTee Nutrition Score: Adequate Thee Nutrition Risk Score: 17 Dietary Referral Nutrition Risk Factors: Nutrition Risk Comment: Physical Findings Physical Appearance: Morbidly Obese 40+ Skin Appearance Skin Appearance: Edema Edema Location Modifier: Edema Location: Type of Edema: Degree of Edema: Gastrointestinal Symptoms GI Symtoms: Tube Present: Bowel Sounds: Recent Bowel Pattern: Stool Characteristics: Nutritional Diagnosis Nutritional Risk Acuity 3: Morbid Obesity (BMI 48.9) Past Medical History: HTN, T2DM, depression, dyslipidemia, spina bifida, chronic back pain Nutritional Acuity: 3-Mild Nutrition Diagnosis: Excessive Food Intake Nutrition Etiology: Inappropriate Food Choice Nutrition Problem/Etiology/Sym: Excessive food intake related to inappropriate food choices AEB BMI of 48.8 and whole blood glucose of 402. Energy Requirement: 2123 ([place] Adj total REE with AF 1.3 due to BMI >27.5 2123) Protein Requirement: 124 (1.1g/kg 1.1 X113.3) Fluid Requirement: 3390 (30ml/kg 97A305.3) Diet Type: Diabetic, Low Fat Nutrition Intervention: Cont diet as ordered, Check glucose Nutritional Education Nutrition Education Topic: Diabetic Nutrition Learning Readiness: Not Ready Teaching Methods: Handout Response to Teaching: Reinforcement needed, Unable to comprehend Teaching Recipient: Patient Nutrition Counselin/14 Amber SALAS and I went to pt with a plan to discuss ADA diet and pt elevated blood glucose levels. Once I had mention to her about our concerns regarding her elevated blood glucose, she was not interested. She was educated on what she should be eating stating "its all about the starachy food". Pt stated that she was aware of her blood glucose levels and was not tracking what she ate here like she does at home. Pt then moved away from the nutrition topic and began to discuss about her past and how that played a part in diet, being an emotional eater. Pt was not ready or interested to discuss more nutrition education on Diabetes. Amber and I asked the pt if she had any questions regarding nutrition, pt had no concerns at this time. Left pt with several handouts regarding MNT on Diabetes, MyPlate and portion sizes. MT Nutrition Monitoring & Eval Nutrition Goals: Eat 75-100% Meal RD Patient Assessment Time: [address] Assessment Type: RD Screen Patient Nutrition Acuity: 3-Mild Follow Up Date: February 06, 2018 Nutritional Comment: 02/05 Pt admitted with low back pain. PMH of T2DM, HTN and dyslipidemia. BMI in morbid obesity category. Wt up 17# since last admit in 2015. Currently on ADA and low fat diets. Pt would benefit from wt loss diet education. Will interview her tomorrow. No intake recorded yet. No new labs. 02/06: Pt continues on ADA and low fat diet, consuming 100% of her meals. Abnormal lab values show elevated BUN 20, elevated whole blood glucose 402 and elevated random blood glucose 161. Amber SALAS and I went up to visit the pt, to discuss MNT on Diabetes. Pt was not interested at the time. Amber and I left pt with nutrition education material regarding Diabetes, MyPlate and serving sizes. Continue to monitor pt progress. -HERON ARTHUR February 06, 2018 09:20
[2018-02-06] MEDS ORDERED: CANA100T PO (14:38)
[2018-02-06] MEDS ORDERED: HYDR-2966 PO (14:38)
[2018-02-06] MEDS ORDERED: ATOR10TA24 PO (14:38)
[2018-02-06] MEDS ORDERED: ESCI10TA8 PO (14:40)
[2018-02-06 16:29] VITALS: BP 104/62
[2018-02-06] MEDS: ATORVASTATIN 40 MG TAB PO SCH (21:12)
[2018-02-06] MEDS: ESCITALOPRAM OXALATE 10 MG TAB PO SCH (21:13)
[2018-02-06 21:20] VITALS: BP 112/68
[2018-02-06] MEDS: NIACINAMIDE 500 MG TAB PO SCH (21:28)
[2018-02-07] MEDS: IBUPROFEN 600 MG TAB PO SCH ×2 (00:25→08:53)
[2018-02-07 03:18] VITALS: BP 97/54
[2018-02-07 08:44] VITALS: BP 111/61
[2018-02-07] MEDS ORDERED: ASPI81TA86 PO (08:46)
[2018-02-07] MEDS ORDERED: PRE5 PO (08:46)
[2018-02-07] MEDS: GABAPENTIN 300 MG CAP PO SCH (08:52)
[2018-02-07] MEDS: ATENOLOL 25 MG TAB PO SCH (08:53)
[2018-02-07] MEDS: PANTOPRAZOLE SOD 40 MG TABEC PO SCH (08:53)
[2018-02-07] MEDS: glyBURIDE 5 MG TAB PO SCH (08:54)
[2018-02-07] MEDS: ORPHENADRINE CITR 100 MG TABSR PO SCH (08:54)
[2018-02-07] MEDS: LISINOPRIL 5 MG TAB PO SCH (08:54)
[2018-02-07] MEDS: predniSONE 5 MG TAB PO SCH (08:55)
[2018-02-07] MEDS: ASPIRIN 81 MG ENTERIC COATED PO SCH (08:55)
[2018-02-07] MEDS ORDERED: IBUP600T22 PO (08:59)
[2018-02-07] MEDS ORDERED: ATEN-65 PO (09:23)
[2018-02-07] MEDS ORDERED: LISI5TAB25 PO (09:23)
--- NOTE | 2018-02-07 09:35 | Hospitalist Depart ---
Discharge Summary Reason for Hosp/Final Diag: (1) Spinal stenosis of lumbar region Status: Acute Hospital Course & Plan: She was admitted with spinal stenosis and difficulty ambulating. She was placed on Ibuprofen, Norflex, and Dilaudid for breakthrough pain. She did work with physical therapy. She has been able to ambulate with much improvement. She will be scheduled with av specialist for evaluation as an outpatient for surgical intervention. She will continue Ibuprofen, Neurontin and Prednisone daily as an outpatient for pain control. (2) DM (diabetes mellitus) Status: Chronic Hospital Course & Plan: She is on chronic treatment with Glyburide and Invokona. (3) Dyslipidemia Status: Chronic Hospital Course & Plan: She is on chronic treatment with Lipitor. She will continue Niacin 250mg daily for hypertriglyceridemia. (4) HTN (hypertension) Status: Chronic Hospital Course & Plan: She was on chronic treatment with Hydrochlorothiazide and Lisinopril. We will decrease her Lisinopril to 5mg daily and she will continue Atenolol 12.5mg po qd for her HR to be 60-70. She will take ASA 81mg po qd for prophylaxis for her high risk of CAD/CVA. Departure Latest Vital Signs Vital Signs 02/07/18 08:47 Pulse Ox 91 O2 Delivery Nasal Cannula O2 Flow Rate 2.0 Weight (Pounds): 250 Result Diagram: 02/06/1845 02/06/18544 Condition: Improved Discharge: Home, Self Care Discharge Instructions Home Meds Reported Medications Escitalopram Oxalate (ESCITALOPRAM OXALATE) 10 Mg Tablet, 15 MG PO QDAY, TAB 02/06/18 Hydrochlorothiazide (HYDROCHLOROTHIAZIDE) 25 Mg Tablet, 1 TAB PO QDAY Y for swelling, TAB 02/06/18 Canagliflozin (INVOKANA) 100 Mg Tablet, 100 MG PO DAILY 02/06/18 Atorvastatin Calcium (LIPITOR) 10 Mg Tablet, 1 TAB PO QHS, TAB 02/06/18 Ubidecarenone (Coenzyme Q-10) 30 Mg Capsule, PO QDAY 02/05/18 Aspirin (ASPIRIN) 325 Mg Tablet, 1200 MG PO QID Y for PAIN, TAB 03/08/17 Gabapentin (GABAPENTIN) 300 Mg Capsule, 600 MG PO QID, CAPSULE 03/08/17 Potassium Chloride (POTASSIUM CHLORIDE) 10 Meq Capsule.er, 10 MEQ PO QDAY TAKE WITH FOOD 06/05/15 Lisinopril (LISINOPRIL) 5 Mg Tablet, 10 MG PO QAM 11/05/14 Glyburide (DIABETA) 5 Mg Tablet, 10 MG PO BID 10/28/13 Multivitamins W-Minerals (Multiple Vitamin) 1 Tab Tablet, 1 TAB PO DAILY 01/25/13 Discontinued Reported Medications [statin] No Conflict Check, PO QDAY 02/05/18 Escitalopram Oxalate (LEXAPRO) 20 Mg Tablet, 15 MG PO QHS, TAB 02/05/18 Acyclovir (ACYCLOVIR) 400 Mg Tablet, 800 MG PO QID Y for INFECTION, TAB 03/08/17 Fenofibrate Nanocrystallized (FENOFIBRATE) 145 Mg Tablet, 145 MG PO QDAY 07/21/16 Canagliflozin (INVOKANA) 300 Mg Tablet, 300 MG PO DAILY 03/08/17 Discontinued Scripts Hydrocodone Bit/Acetaminophen (NORCO 5-325 TABLET) 1 Each Tablet, 1 EACH PO Q4H Y for PAIN, #10 TAB Prov:JAMIA SHAY DO 02/05/18 Methocarbamol (ROBAXIN-750) 750 Mg Tablet, 1 TAB PO TID Y for muscle spasm relief, #12 Prov:JAMIA SHAY DO 02/05/18 Oxycodone Hcl/Acetaminophen (OXYCODON-ACETAMINOPHEN 2.5-325) 1 Each Tablet, 1 EACH PO Q6-8H for PAIN, #10 TAB 0 Refills Prov:ELDON STORY MD 04/13/17 Polyethylene Glycol 3350 (GAVILAX) 17 Gm Powd.pack, 17 GM PO QDAY, #4 PACK 0 Refills Prov:ELDON STORY MD 04/13/17 Diet: Diabetic Activity: As Tolerated Venous Thromboembolism Antithrombotics Is Pt On Any Antithrombotics?: No Problem Qualifiers (1) Spinal stenosis of lumbar region: Neurogenic claudication status: with neurogenic claudication Qualified Codes: M48.062 - Spinal stenosis, lumbar region with neurogenic claudication (2) DM (diabetes mellitus): Diabetes mellitus type: type 2 DERICK MELENDEZ ASSISTANT CURATOR February 07, 2018 09:35
[2018-02-07] MEDS ORDERED: NIAC500T84 PO (09:36)
== END 2018-02-07 10:50 | disposition home or self-care (01) | DRG 552 ==
LOC: ER 01:30 → MED 05:51
PROVIDERS: ADMIT Specialist; ATTEND Specialist
DX: M48.062 Spinal stenosis, lumbar region with neurogenic claudication (principal); Z68.42 Body mass index [BMI] 45.0-49.9, adult; E78.5 Hyperlipidemia, unspecified; I10 Essential (primary) hypertension; E11.40 Type 2 diabetes mellitus with diabetic neuropathy, unspecified; F32.9 Major depressive disorder, single episode, unspecified; E66.01 Morbid (severe) obesity due to excess calories; Z88.8 Allergy status to other drugs, medicaments and biological substances; Z79.84 Long term (current) use of oral hypoglycemic drugs; Z90.710 Acquired absence of both cervix and uterus
CPT/HCPCS: 36415; 36416; 72050; 72131; 82310; 82374; 82435; 82565; 82947; 82948; 84132; 84295; 84520; 85025; 97161; 99285; J1170; J2060; J2405; J2930; J7512